=== PATIENT | male | born 1975 | race Two or more races ===

== ENCOUNTER 2023-05-08 22:27 | Emergency (ER) | payer BC, MEDICAID ==
[~2023-05-08] VITALS: Ht 182.9 cm; Wt 213.1 kg
[2023-05-08 23:06] VITALS: TEMP 98.3
[2023-05-08] MEDS: DexAMETHasone SOD PHOS 10MG/1ML VIAL INJ IM ONE (23:11)
[2023-05-08] MEDS: cloNIDine HCL 0.1 MG TAB PO ONE (23:11)
[2023-05-08] MEDS: ALBUTEROL SULF 2.5 MG/0.5ML(0.5%) NEB SOLN NEB ONE (23:22)
[2023-05-08] MEDS: IPRATROPIUM BROM 0.5 MG/2.5ML INH SOL NEB ONE (23:22)
[2023-05-08 23:37] LABS: Basophils # (auto) 0 10 ^3/uL (0-0.2); Eosinophils # (auto) 0.2 10 ^3/uL (0-0.8); Eosinophils % (auto) 1.9 % (0.0-7.0); Hemoglobin 13.5 g/dL (13.5-17.5); Lymphocytes # (auto) 2.6 10 ^3/uL (0.4-5.4); Monocytes % (auto) 8.4 % (0.0-12.0)
[2023-05-08 23:38] LABS: Basophils % (auto) 0.2 % (0.0-2.0); Hematocrit 44.1 % (41.0-53.0); Mean Corpuscular Hemoglobin 20.8 pg (28.0-32.0); Mean Corpuscular Hgb Conc. 30.7 g/dL (32.0-36.0); Mean Corpuscular Volume 67.9 fL (80.0-100.0); Neutrophils % (auto) 67.5 % (37.0-80.0); Nucleated Red Blood Cells % 0.1 %; Red Blood Cells 6.49 10^6/uL (4.5-5.90); White Blood Cell 11.9 10^3/uL (4.4-10.8)
[2023-05-08 23:54] LABS: Chloride 105 mmol/L (98-107)
[2023-05-08 23:55] LABS: Anion Gap 5 (5-15); Carbon Dioxide 31 mmol/L (20-30); Potassium 3.2 mmol/L (3.5-5.1); Sodium 141 mmol/L (136-145)
[2023-05-08 23:56] LABS: Calcium 9.2 mg/dL (8.7-10.4)
[2023-05-09 00:01] VITALS: BP 192/123; PULSE 116; RESP 20; O2SAT 98
[2023-05-09 00:01] LABS: BUN/Creatinine Ratio 6.4 (10.0-20.0); Blood Urea Nitrogen 9 mg/dL (9-23); Glucose 116 mg/dL (74-106)
[2023-05-09] MEDS: cloNIDine HCL 0.1 MG TAB PO ONE (00:40)
[2023-05-09] MEDS: LISINOPRIL 5 MG TAB PO ONE (00:40)
[2023-05-09] MEDS ORDERED: ALBUAER3 IN (00:51)
[2023-05-09] MEDS ORDERED: CLON0.2T PO (00:51)
[2023-05-09] MEDS ORDERED: LISI20TA56 PO (00:51)
[2023-05-09 00:55] LABS: Hypochromia Slight; Platelet Estimate Adequate
== END 2023-05-09 00:57 | disposition home or self-care (01) ==
LOC: ER 22:27
DX: J45.909 Unspecified asthma, uncomplicated (principal); I10 Essential (primary) hypertension; E66.01 Morbid (severe) obesity due to excess calories; Z68.44 Body mass index [BMI] 60.0-69.9, adult
CPT/HCPCS: 36415; 80048; 83880; 85025; 94640; 96372; 99283; J1100; J7644

== ENCOUNTER 2023-05-11 12:18 | Inpatient (IN) | payer BC, MEDICAID ==
[2023-05-11] VITALS (7 sets, daily range): BP systolic 186; BP diastolic 118; PULSE 102–125; RESP 18–22; O2SAT 90–96
[~2023-05-11] VITALS: Ht 182.9 cm; Wt 227.2 kg
[~2023-05-11 12:18] MED LIST: ALBUAER3 IN; CLON0.2T PO; LISI20TA56 PO
[2023-05-11] MEDS: methylPREDNISolone SOD SUCC 125 MG/2 ML VL IV ONE (12:59)
[2023-05-11] MEDS: ALBUTEROL SULF 2.5 MG/0.5ML(0.5%) NEB SOLN NEB ONE (13:07)
[2023-05-11] MEDS: IPRATROPIUM BROM 0.5 MG/2.5ML INH SOL NEB ONE (13:07)
[2023-05-11 14:09] LABS: Anion Gap 4 (5-15); Basophils # (auto) 0 10 ^3/uL (0-0.2); Basophils % (auto) 0.3 % (0.0-2.0); Carbon Dioxide 32 mmol/L (20-30); Chloride 106 mmol/L (98-107); Eosinophils # (auto) 0.2 10 ^3/uL (0-0.8); Mean Corpuscular Volume 68.2 fL (80.0-100.0); Nucleated Red Blood Cells % 0.1 %; Potassium 3.3 mmol/L (3.5-5.1); Red Blood Cells 6.39 10^6/uL (4.5-5.90); Sodium 142 mmol/L (136-145)
[2023-05-11 14:10] LABS: Calcium 8.9 mg/dL (8.5-10.1); Eosinophils % (auto) 1.1 % (0.0-7.0); Hematocrit 43.6 % (41.0-53.0); Hemoglobin 13.3 g/dL (13.5-17.5); Lymphocytes # (auto) 2.1 10 ^3/uL (0.4-5.4); Lymphocytes % (auto) 15.3 % (10.0-50.0); Mean Corpuscular Hemoglobin 20.8 pg (28.0-32.0); Mean Corpuscular Hgb Conc. 30.5 g/dL (32.0-36.0); Monocytes # (auto) 0.8 10 ^3/uL (0-1.3); Monocytes % (auto) 5.6 % (0.0-12.0); Neutrophils # (auto) 10.9 10 ^3/uL (1.6-8.6); Neutrophils % (auto) 77.7 % (37.0-80.0); Red Cell Distribution Width 19.2 % (11.8-14.3)
[2023-05-11 14:15] LABS: BUN/Creatinine Ratio 10.1 (10.0-20.0); Blood Urea Nitrogen 13 mg/dL (9-23); Glucose 118 mg/dL (74-106)
[2023-05-11] MEDS ORDERED: AZITHROMYCIN 500MG/ 250ML 250 ML IV ONE (14:15)
[2023-05-11 14:25] LABS: INR 1.07 (0.9-1.15); Prothrombin Time 11.2 sec (9.3-11.8)
[2023-05-11 14:30] LABS: Platelet Estimate Adequate
[2023-05-11 14:31] LABS: Hypochromia Moderate
[2023-05-11] MEDS: cefTRIAXone 1GM/50ML D5W 50 ML IV ONE (14:42)
[2023-05-11] MEDS: POTASSIUM EFFERVESENT TAB 25 MEQ PO ONE (14:43)
[2023-05-11] MEDS: FUROSEMIDE 100 MG/10ML VIAL IV ONE (14:45)
[2023-05-11] MEDS: LEVALBUTEROL HCL 1.25 MG/3 ML NEB NEB PRN (15:09)
[2023-05-11] MEDS: IPRATROPIUM BROM 0.5 MG/2.5ML INH SOL NEB PRN (15:09)
[2023-05-11] MEDS: ENOXAPARIN SOD 150 MG/1 ML SYRINGE SC SCH (15:23)
[2023-05-11 15:26] LABS: LDL Cholesterol 87 mg/dL (< 100); Triglycerides 109 mg/dL (< 150)
[2023-05-11 15:27] LABS: HDL Cholesterol 41 mg/dL (40-59)
[2023-05-11 15:28] LABS: Cholesterol 142 mg/dL (< 200)
[2023-05-11] MEDS: DOXYCYCLINE 100MG/250ML 250 ML IV ONE (15:43)
[2023-05-11] MEDS: OPTISON 3ml Vial for INJ IV ONE ×2 (15:44→15:45)
[2023-05-11] MEDS: hydrALAZINE HCL 20 MG/ML VL IV PRN (15:51)
[2023-05-11] MEDS: METOPROLOL TARTRATE 25 MG TAB PO SCH (22:02)
[2023-05-11] MEDS: ATORVASTATIN 20 MG TAB PO SCH (22:02)
[2023-05-11] MEDS: FUROSEMIDE 20 MG/2 ML VIAL IV SCH (22:02)
[2023-05-12] VITALS (10 sets, daily range): BP systolic 123–148; BP diastolic 80–97; PULSE 74–96; RESP 20–52; TEMP 97.9–98.6; O2SAT 4–99
[2023-05-12] MEDS: dilTIAZem 25 MG/5 ML VIAL IV ONE (02:20)
[2023-05-12 04:23] LABS: Basophils # (auto) 0 10 ^3/uL (0-0.2); Basophils % (auto) 0.1 % (0.0-2.0); Eosinophils # (auto) 0 10 ^3/uL (0-0.8); Hematocrit 43.2 % (41.0-53.0); Hemoglobin 13.7 g/dL (13.5-17.5); Lymphocytes # (auto) 0.9 10 ^3/uL (0.4-5.4); Lymphocytes % (auto) 6.8 % (10.0-50.0); Mean Corpuscular Hemoglobin 21.6 pg (28.0-32.0); Mean Corpuscular Hgb Conc. 31.7 g/dL (32.0-36.0); Monocytes # (auto) 0.5 10 ^3/uL (0-1.3); Monocytes % (auto) 3.5 % (0.0-12.0); Neutrophils % (auto) 89.6 % (37.0-80.0); Red Blood Cells 6.35 10^6/uL (4.5-5.90); Red Cell Distribution Width 19.5 % (11.8-14.3); White Blood Cell 13.4 10^3/uL (4.4-10.8)
[2023-05-12 04:41] LABS: Alanine Aminotransferase 26 U/L (7-40); Albumin 4.1 g/dL (3.2-4.8); Alkaline Phosphatase 89 U/L (46-116); Anion Gap 6 (5-15); Aspartate Aminotransferase 20 U/L (13-40); BUN/Creatinine Ratio 9.6 (10.0-20.0); Blood Urea Nitrogen 13 mg/dL (9-23); Calcium 9.2 mg/dL (8.5-10.1); Carbon Dioxide 31 mmol/L (20-30); Chloride 102 mmol/L (98-107); Glucose 168 mg/dL (74-106); LDL Cholesterol 99 mg/dL (< 100); Potassium 3.9 mmol/L (3.5-5.1); Sodium 139 mmol/L (136-145); Triglycerides 75 mg/dL (< 150)
[2023-05-12 04:42] LABS: Bilirubin, Total 0.6 mg/dL (0.2-1.0); Cholesterol 162 mg/dL (< 200); HDL Cholesterol 53 mg/dL (40-59); Total Protein 7.4 g/dL (5.7-8.2)
[2023-05-12] MEDS ORDERED: HYDR25TA4 PO (08:52)
[2023-05-12] MEDS: amLODIPine BESYLATE 5 MG TAB PO SCH (09:32)
[2023-05-12] MEDS: cefTRIAXone 1GM/50ML D5W 50 ML IV SCH (09:33)
[2023-05-12] MEDS ORDERED: AZITHROMYCIN 500MG/ 250ML 250 ML IV SCH (10:00)
[2023-05-12] MEDS ORDERED: DEXTROSE (50%) 50ML SYRG IV PRN (11:15)
[2023-05-12] MEDS: InsuLIN REG 1unit/0.01ml Soln (100units/ml) SC SCH (12:00)
[2023-05-12] MEDS: ACCU-CHEK COMFORT CURVE STRIP VI SCH (12:00)
[2023-05-12 20:05] LABS: Urine Bacteria NONE SEEN /hpf (None Seen); Urine Blood Negative /uL (Negative); Urine Clarity Clear (Clear); Urine Color Yellow (Yellow); Urine Hyaline Cast FEW /lpf (0 - 2); Urine Protein, UAD 2+ (Negative); Urine Urobilinogen Normal (Negative); Urine WBC 2 /hpf (0 - 3); Urine pH 5.5 (5.0-8.0)
[2023-05-12] MEDS: SACUBITRIL-VALSARTAN 24mg/26mg TAB PO SCH (21:17)
[2023-05-13] VITALS (12 sets, daily range): BP systolic 114–160; BP diastolic 75–101; PULSE 83–111; RESP 18–20; TEMP 97.7–99; O2SAT 93–99
[2023-05-13] MEDS: FUROSEMIDE 20 MG/2 ML VIAL IV SCH (06:02)
[2023-05-13 06:46] LABS: Basophils # (auto) 0 10 ^3/uL (0-0.2); Basophils % (auto) 0.2 % (0.0-2.0); Eosinophils # (auto) 0.1 10 ^3/uL (0-0.8); Lymphocytes # (auto) 2.4 10 ^3/uL (0.4-5.4); Mean Corpuscular Hemoglobin 20.9 pg (28.0-32.0); Monocytes # (auto) 0.9 10 ^3/uL (0-1.3); Nucleated Red Blood Cells % 0.1 %; White Blood Cell 11.9 10^3/uL (4.4-10.8)
[2023-05-13 06:49] LABS: Eosinophils % (auto) 0.5 % (0.0-7.0); Hematocrit 43.8 % (41.0-53.0); Hemoglobin 13.4 g/dL (13.5-17.5); Lymphocytes % (auto) 20.4 % (10.0-50.0); Mean Corpuscular Hgb Conc. 30.6 g/dL (32.0-36.0); Mean Corpuscular Volume 68.1 fL (80.0-100.0); Monocytes % (auto) 7.7 % (0.0-12.0); Neutrophils # (auto) 8.4 10 ^3/uL (1.6-8.6); Neutrophils % (auto) 71.2 % (37.0-80.0); Red Blood Cells 6.44 10^6/uL (4.5-5.90); Red Cell Distribution Width 19.1 % (11.8-14.3)
[2023-05-13 06:56] LABS: Anion Gap 1 (5-15); Carbon Dioxide 34 mmol/L (20-30); Chloride 103 mmol/L (98-107); Potassium 3.5 mmol/L (3.5-5.1); Sodium 138 mmol/L (136-145)
[2023-05-13 06:57] LABS: Calcium 8.8 mg/dL (8.5-10.1)
[2023-05-13 07:02] LABS: BUN/Creatinine Ratio 12.4 (10.0-20.0); Blood Urea Nitrogen 18 mg/dL (9-23); Glucose 108 mg/dL (74-106)
[2023-05-13] MEDS: EMPAGLIFLOZIN 10 MG TAB PO SCH (09:45)
[2023-05-13] MEDS: ENOXAPARIN SOD 40 MG/0.4 ML SYRINGE SC SCH (09:45)
[2023-05-13] MEDS: FUROSEMIDE 40 MG/4 ML VIAL IV ONE (11:30)
[2023-05-13] MEDS: BUMETANIDE INJECTION 25 MG in GIVE UN-DILUTED 0 ML IV SCH (15:00)
[2023-05-13] MEDS: SACUBITRIL-VALSARTAN 24mg/26mg TAB PO SCH (21:16)
[2023-05-13] MEDS ORDERED: FUROSEMIDE 40 MG/4 ML VIAL IV SCH (22:00)
[2023-05-14] VITALS (10 sets, daily range): BP systolic 91–124; BP diastolic 58–80; PULSE 91–104; RESP 18–20; TEMP 97.8–98.8; O2SAT 8–98
[2023-05-14 07:26] LABS: Anion Gap 4 (5-15); Carbon Dioxide 38 mmol/L (20-30); Chloride 99 mmol/L (98-107); Potassium 3.2 mmol/L (3.5-5.1); Sodium 141 mmol/L (136-145)
[2023-05-14 07:28] LABS: Calcium 8.9 mg/dL (8.5-10.1)
[2023-05-14 07:32] LABS: Blood Urea Nitrogen 22 mg/dL (9-23); Glucose 114 mg/dL (74-106)
[2023-05-14] MEDS: POTASSIUM CHL 20 Meq TABLET PO ONE (12:52)
[2023-05-14] MEDS: POTASSIUM EFFERVESENT TAB 25 MEQ PO ONE (14:08)
[2023-05-14 14:56] LABS: Amphetamine Screen, Urine Neg (NEGATIVE); Barbiturate Scree,Urine Neg (NEGATIVE); Benzodiazephine Screen, Urine Neg (NEGATIVE); Cocaine Screen, Urine Neg (NEGATIVE)
[2023-05-14 14:57] LABS: Cannabinoid Screen, Urine Neg (NEGATIVE); Opiate Scree,Urine Neg (NEGATIVE); Phencyclidine Screen, Urine Neg (NEGATIVE)
[2023-05-15] VITALS (8 sets, daily range): BP systolic 110–120; BP diastolic 62–90; PULSE 72–106; RESP 16–18; TEMP 36.7; O2SAT 94–97
[2023-05-15 15:16] LABS: Basophils # (auto) 0 10 ^3/uL (0-0.2); Basophils % (auto) 0.3 % (0.0-2.0); Eosinophils # (auto) 0.2 10 ^3/uL (0-0.8); Eosinophils % (auto) 1.3 % (0.0-7.0); Nucleated Red Blood Cells % 0.1 %
[2023-05-15 15:18] LABS: Hematocrit 43.5 % (41.0-53.0); Hemoglobin 13.4 g/dL (13.5-17.5); Lymphocytes # (auto) 1.9 10 ^3/uL (0.4-5.4); Lymphocytes % (auto) 14.2 % (10.0-50.0); Mean Corpuscular Hemoglobin 21.2 pg (28.0-32.0); Mean Corpuscular Hgb Conc. 30.9 g/dL (32.0-36.0); Mean Corpuscular Volume 68.5 fL (80.0-100.0); Monocytes # (auto) 1.1 10 ^3/uL (0-1.3); Monocytes % (auto) 8.4 % (0.0-12.0); Neutrophils # (auto) 10.1 10 ^3/uL (1.6-8.6); Neutrophils % (auto) 75.8 % (37.0-80.0); Red Blood Cells 6.34 10^6/uL (4.5-5.90); Red Cell Distribution Width 18.7 % (11.8-14.3); White Blood Cell 13.4 10^3/uL (4.4-10.8)
[2023-05-15 15:25] LABS: Chloride 97 mmol/L (98-107); Potassium 3.1 mmol/L (3.5-5.1); Sodium 139 mmol/L (136-145)
[2023-05-15 15:26] LABS: Anion Gap 3 (5-15); Calcium 9.2 mg/dL (8.7-10.4); Carbon Dioxide 39 mmol/L (20-30)
[2023-05-15 15:31] LABS: BUN/Creatinine Ratio 13.2 (10.0-20.0); Blood Urea Nitrogen 27 mg/dL (9-23); Glucose 115 mg/dL (74-106)
[2023-05-15] MEDS: POTASSIUM CHL 20 Meq TABLET PO ONE (16:18)
[2023-05-15] MEDS: POTASSIUM EFFERVESENT TAB 25 MEQ GT ONE (16:57)
[2023-05-16 05:00] VITALS: BP 112/82; PULSE 110; RESP 18; TEMP 98.4; O2SAT 96
[2023-05-16 06:03] LABS: Basophils # (auto) 0 10 ^3/uL (0-0.2); Eosinophils # (auto) 0.2 10 ^3/uL (0-0.8)
[2023-05-16 06:07] LABS: Basophils % (auto) 0.1 % (0.0-2.0); Eosinophils % (auto) 1.3 % (0.0-7.0); Hemoglobin 13.7 g/dL (13.5-17.5); Lymphocytes # (auto) 1.9 10 ^3/uL (0.4-5.4); Lymphocytes % (auto) 12.9 % (10.0-50.0); Mean Corpuscular Hemoglobin 21.3 pg (28.0-32.0); Mean Corpuscular Hgb Conc. 31.1 g/dL (32.0-36.0); Mean Corpuscular Volume 68.7 fL (80.0-100.0); Monocytes # (auto) 1.3 10 ^3/uL (0-1.3); Monocytes % (auto) 8.5 % (0.0-12.0); Neutrophils # (auto) 11.4 10 ^3/uL (1.6-8.6); Neutrophils % (auto) 77.2 % (37.0-80.0); Red Blood Cells 6.41 10^6/uL (4.5-5.90); Red Cell Distribution Width 18.4 % (11.8-14.3); White Blood Cell 14.8 10^3/uL (4.4-10.8)
[2023-05-16 06:31] LABS: Anion Gap 6 (5-15); Calcium 9.2 mg/dL (8.7-10.4); Carbon Dioxide 38 mmol/L (20-30); Chloride 95 mmol/L (98-107); Potassium 3.2 mmol/L (3.5-5.1); Sodium 139 mmol/L (136-145)
[2023-05-16 06:37] LABS: BUN/Creatinine Ratio 12.8 (10.0-20.0); Blood Urea Nitrogen 24 mg/dL (9-23); Glucose 99 mg/dL (74-106)
[2023-05-16 06:56] VITALS: O2SAT 100
[2023-05-16 08:00] VITALS: PULSE 105
[2023-05-16 08:47] VITALS: BP 106/66; PULSE 104; RESP 18; TEMP 99.2; O2SAT 92
[2023-05-16] MEDS: cefTRIAXone 1GM/50ML D5W 50 ML IV SCH (08:52)
[2023-05-16] MEDS: MIDAZOLAM HCL 5 MG/ML-1ML VIAL ONE (11:56)
[2023-05-16] MEDS: ETOMIDATE (2MG/ML) 20ML VIAL IV ONE ×2 (11:59→12:00)
[2023-05-16] MEDS: PROPOFOL 100 ML IV ONE (12:00)
[2023-05-16] MEDS: ROCURONIUM 10MG/ML 10ML VIAL IV ONE ×2 (12:00→12:30)
[2023-05-16] MEDS: fentaNYL Drip 2500mCg/250mlNS 250 ML IV ONE (12:01)
[2023-05-16] MEDS: NOREPINEPHRINE 8 MG/250ML KIT 250 ML IV ONE (12:01)
[2023-05-16] MEDS ORDERED: LORazepam 2MG/ML-1ML VIAL IV PRN (12:15)
[2023-05-16] MEDS: EPINEPHrine HCL 250 ML IV ONE (12:19)
[2023-05-16 12:20] VITALS: BP 60/30
[2023-05-16] MEDS: EPINEPHrine HCL 250 ML IV SCH (12:20)
[2023-05-16] MEDS ORDERED: HEPARIN DRIP/D5W 100UNITS/ML 250 ML IV STA (12:25)
[2023-05-16] MEDS ORDERED: ASPirin 325 MG TAB PO STA (12:25)
[2023-05-16] MEDS: NOREPINEPHRINE 8 MG/250ML KIT 250 ML IV SCH (12:30)
== END 2023-05-16 12:43 | DRG 133 ==
LOC: ER 12:18 → TELE 13:53 → TELE-WESTW 05-12 08:08 → ICU CENTRL 05-16 12:27
PROVIDERS: ADMIT Nurse Practitioner Family; ATTEND Internal Medicine
PROC: 5A12012 Performance of Cardiac Output, Single, Manual (ICD-10-PCS; principal; 2023-05-16)
PROC: 5A1935Z Respiratory Ventilation, Less than 24 Consecutive Hours (ICD-10-PCS; 2023-05-16)
PROC: 06HY33Z Insertion of Infusion Device into Lower Vein, Percutaneous Approach (ICD-10-PCS; 2023-05-16)
PROC: B54BZZA Ultrasonography of Right Lower Extremity Veins, Guidance (ICD-10-PCS; 2023-05-16)
PROC: 0BH17EZ Insertion of Endotracheal Airway into Trachea, Via Natural or Artificial Opening (ICD-10-PCS; 2023-05-16)
DX: J96.01 Acute respiratory failure with hypoxia (principal); I21.A1 Myocardial infarction type 2; I50.43 Acute on chronic combined systolic (congestive) and diastolic (congestive) heart failure; N17.9 Acute kidney failure, unspecified; I42.9 Cardiomyopathy, unspecified; J45.901 Unspecified asthma with (acute) exacerbation; Z68.44 Body mass index [BMI] 60.0-69.9, adult; I13.0 Hypertensive heart and chronic kidney disease with heart failure and stage 1 through stage 4 chronic kidney disease, or unspecified chronic kidney disease; I16.1 Hypertensive emergency; D72.829 Elevated white blood cell count, unspecified; I46.9 Cardiac arrest, cause unspecified; E87.5 Hyperkalemia; I44.7 Left bundle-branch block, unspecified; E66.01 Morbid (severe) obesity due to excess calories; N18.2 Chronic kidney disease, stage 2 (mild); Z79.899 Other long term (current) drug therapy
CPT/HCPCS: 36415; 71045; 76604; 76775; 80048; 80053; 80061; 80307; 81001; 82962; 83036; 83735; 83880; 84300; 84443; 84484; 85025; 85379; 85610; 87086; 92950; 93005; 93306; 94640; 96374; 97163; 99291; G0378; J0171; J2250; J2704; J3490; Q9956